=== PATIENT | male | born 1960 | race Caucasian/White ===

== ENCOUNTER 2021-11-25 08:48 | Emergency (ER) | payer BC ==
[2021-11-25] MEDS ORDERED: Sodium Chloride 0.9% 10 ML Syringe FLUSH PRN (08:58)
[2021-11-25] MEDS ORDERED: HYDROmorphone 0.5 MG/0.5 ML Syringe IVPUSH ONE ×2 (08:58→09:57)
[2021-11-25] MEDS ORDERED: Diphtheria,Pertussis(Acell),Tetanus Vaccine 0.5 ML Syringe IM ONE (08:59)
[2021-11-25] MEDS ORDERED: ceFAZolin 1 GM in Sodium Chloride 0.9% 50 ML IV ONE (09:00)
== END 2021-11-25 11:13 | disposition other institution (70) ==
LOC: JD.ED 08:48
DX: S62.632A Displaced fracture of distal phalanx of right middle finger, initial encounter for closed fracture (principal); Z72.0 Tobacco use; Z23 Encounter for immunization; W26.8XXA Contact with other sharp object(s), not elsewhere classified, initial encounter; Y99.0 Civilian activity done for income or pay
CPT/HCPCS: 73130; 90471; 90715; 96365; 96375; 96376; 99284; J0690; J1170

== ENCOUNTER 2021-11-25 12:21 | Day surgery (SDC) | payer BC ==
[2021-11-25] MEDS ORDERED: Sodium Chloride 0.9% 10 ML Syringe FLUSH PRN (12:22)
[2021-11-25] MEDS ORDERED: Lidocaine 1%/Sod Bicarbonate in NS 8.4% 1 ML Syringe IDERM PRN (12:22)
[2021-11-25] MEDS ORDERED: Lactated Ringers 1,000 ML IV SCH (12:30)
[2021-11-25] MEDS ORDERED: Lidocaine 1% 30 ML SDV ONE (12:37)
[2021-11-25] MEDS ORDERED: Bupivacaine 0.25% 10 ML SDV ONE (12:37)
[2021-11-25] MEDS ORDERED: Lidocaine 1% 4 ML ONE (12:47)
[2021-11-25] MEDS ORDERED: Midazolam 1 MG/ML 2 ML SDV ONE ×2 (12:47→13:12)
[2021-11-25] MEDS ORDERED: Propofol 200 MG/20 ML SDV ONE (12:47)
[2021-11-25] MEDS ORDERED: fentaNYL 100 MCG/2 ML SDV ONE (12:48)
[2021-11-25] MEDS ORDERED: ceFAZolin 1 GM Vial ONE (13:09)
[2021-11-25] MEDS ORDERED: Ketorolac 30 MG/ML SDV ONE (13:41)
[2021-11-25] MEDS ORDERED: Ondansetron 4 MG/2 ML SDV ONE (13:41)
[2021-11-25] MEDS ORDERED: Sodium Chloride 0.9% 10 ML Syringe FLUSH SCH (21:00)
== END 2021-11-25 15:18 | disposition home or self-care (01) ==
LOC: JD.SDS 12:21
PROVIDERS: ATTEND Orthopaedic Surgery
DX: S67.190A Crushing injury of right index finger, initial encounter (principal); S67.192A Crushing injury of right middle finger, initial encounter; F17.210 Nicotine dependence, cigarettes, uncomplicated
CPT/HCPCS: 26951; J0690; J1885; J2250; J2405; J2704; J3010; J3490; J7120; 01830; 99140